=== PATIENT | female | born 1965 | race Caucasian/White ===

== ENCOUNTER 2019-03-08 09:54 | Emergency (ER) | payer SELFPAY ==
[2019-03-08] MEDS ORDERED: dexAMETHasone 10 MG/ML VIAL ONE (11:11)
--- NOTE | 2019-03-08 11:29 | ER ---
Nurse's Notes [facility] Name: Candis Denise Age: 53 yrs Sex: Female : 1965 Arrival Date: 03/08/2019 Time: 09:58 Bed X-Ray Private MD: Diagnosis: Low back pain;Muscle spasm of back;Sciatica, right side;Urinary tract infection, site not specified Presentation: 03/08 10:02 Presenting complaint: Patient states: Back pain x 3 weeks. Denies injury. Transition of rb1 care: patient was not received from another setting of care. Onset of symptoms is unknown. Risk Assessment: Do you want to hurt yourself or someone else? Patient reports no desire to harm self or others. Initial Sepsis Screen: Does the patient meet any 2 criteria? No. Patient's initial sepsis screen is negative. Does the patient have a suspected source of infection? No. Patient's initial sepsis screen is negative. Care prior to arrival: None. 10:02 Method Of Arrival: Ambulatory rb1 10:02 Acuity: TERESSA 3 rb1 Triage Assessment: 10:02 General: Appears uncomfortable, Behavior is calm, cooperative. Pain: Complains of pain rb1 in right low back Pain radiates to right leg Pain currently is 10 out of 10 on a pain scale. Pain began x 3 weeks. Neuro: Level of Consciousness is awake, alert, obeys commands, Oriented to person, place, time, situation. Cardiovascular: Capillary refill < 3 seconds is brisk in bilateral fingers. Respiratory: Airway is patent Respiratory effort is even, unlabored, Respiratory pattern is regular, symmetrical. GI: Reports nausea. : No signs and/or symptoms were reported regarding the genitourinary system. Derm: Skin is pink, warm \T\ dry. Musculoskeletal: Range of motion: intact in all extremities. MEETING COORDINATOR: 10:02 LMP N/A - Post-menopause rb1 Historical: - Allergies: 10:02 PENICILLINS; rb1 - Home Meds: 10:02 None [Active]; rb1 - PMHx: 10:02 None; rb1 - PSHx: 10:02 ; hand; rb1 - Immunization history:: Adult Immunizations up to date. - Social history:: Smoking status: . - Ebola Screening: : Patient negative for fever greater than or equal to 101.5 degrees Fahrenheit, and additional compatible Ebola Virus Disease symptoms. - Family history:: not pertinent. Screenin:02 Abuse screen: Denies threats or abuse. Nutritional screening: No deficits noted. rb1 Tuberculosis screening: No symptoms or risk factors identified. Fall Risk None identified. Assessment: 10:02 General: See triage assessment. rb1 10:55 Reassessment: Spoke to Logan in pharmacy, they will bring Toradol to the floor. Both rb1 Pysix is empty. 11:00 Reassessment: Patient appears in no apparent distress at this time. No changes from rb1 previously documented assessment. 11:45 Reassessment: Patient appears in no apparent distress at this time. Patient and/or rb1 family updated on plan of care and expected duration. Pain level reassessed. Patient is alert, oriented x 3, equal unlabored respirations, skin warm/dry/pink. Patient states feeling better. Vital Signs: 10:02 BP 154 / 74; Pulse 71; Resp 17; Temp 98.5(O); Pulse Ox 100% on R/A; Weight 74.84 kg rb1 (R); Height 5 ft. 8 in. (172.72 cm) (R); Pain 10/10; 11:00 BP 123 / 72; Pulse 73; Resp 16; Temp 98.3(O); Pulse Ox 100% on R/A; Pain 8/10; rb1 10:02 Body Mass Index 25.09 (74.84 kg, 172.72 cm) [facility] ED Course: 09:58 Patient arrived in ED. as 10:02 Drea iVnson, RN is Primary Nurse. rb1 10:02 Peterson High MD is Attending Physician. wyatt 10:02 Arm band placed on right wrist. rb1 10:02 Patient has correct armband on for positive identification. Bed in low position. Call rb1 light in reach. Side rails up X 1. Pulse ox on. NIBP on. 10:14 Triage completed. rb1 11:05 Patient moved to radiology via wheelchair. jb2 11:12 X-ray completed. Patient tolerated procedure well. Patient moved back from radiology. jb2 11:32 Lumbar Spine 3 Views In Process Unspecified. EDMS 11:40 Urine collected: clean catch specimen, cloudy. dh3 11:50 No provider procedures requiring assistance completed. Patient did not have IV access rb1 during this emergency room visit. Administered Medications: 11:00 Drug: Decadron 10 mg Route: IM; Site: right gluteus; rb1 11:15 Follow up: Response: No adverse reaction rb1 11:26 Drug: TORadol 60 mg Route: IM; Site: left gluteus; rb1 11:45 Follow up: Response: No adverse reaction; Pain is decreased rb1 11:45 Drug: Bactrim (160 mg-800 mg (DS) 1 tablet Route: PO; rb1 11:50 Follow up: Response: Medication administered at discharge. rb1 Outcome: 11:28 Discharge ordered by MD. schneider 11:50 Patient left the ED. rb1 11:50 Discharged to home ambulatory. rb1 11:50 Condition: stable 11:50 Discharge instructions given to patient, Instructed on discharge instructions, follow up and referral plans. medication usage, Demonstrated understanding of instructions, follow-up care, medications, Prescriptions given X x 5 Signatures: Dispatcher [employer] EDMS Peterson High MD MD cha Buechter, Jesse jb2 Martinez, Amelia as Barber, Rebecca, RN RN rb1 Vianney Cartagena 3 Corrections: (The following items were deleted from the chart) 11:40 11:40 Urine collected: clean catch specimen, clear, dh3 dh3
--- NOTE | 2019-03-08 11:30 | EDPHYS ---
Physician Documentation [facility] Name: Candis Denise Age: 53 yrs Sex: Female : 1965 Arrival Date: 03/08/2019 Time: 09:58 Bed X-Ray Private MD: ED Physician Peterson High HPI: 03/08 10:40 This 53 yrs old Female presents to ER via Ambulatory with complaints of Back wyatt Pain, Thigh Pain. 10:40 The patient presents with pain that is acute, and decreased range of motion. The wyatt symptoms are located in the low back. Onset: The symptoms/episode began/occurred 14 day(s) ago. The pain does not radiate. Associated signs and symptoms: The patient has no apparent associated signs or symptoms. Modifying factors: The patient symptoms are alleviated by remaining still, rest. Severity of symptoms: At their worst the symptoms were moderate, in the emergency department the symptoms are unchanged. The patient has not experienced similar symptoms in the past. [employer]IAL MEDIA MANAGER: 10:02 LMP N/A - Post-menopause rb1 Historical: - Allergies: 10:02 PENICILLINS; rb1 - Home Meds: 10:02 None [Active]; rb1 - PMHx: 10:02 None; rb1 - PSHx: 10:02 ; hand; rb1 - Immunization history:: Adult Immunizations up to date. - Social history:: Smoking status: . - Ebola Screening: : Patient negative for fever greater than or equal to 101.5 degrees Fahrenheit, and additional compatible Ebola Virus Disease symptoms. - Family history:: not pertinent. ROS: 10:40 Constitutional: Negative for fever, chills, and weight loss, Eyes: Negative for injury, wyatt pain, redness, and discharge, ENT: Negative for injury, pain, and discharge, Neck: Negative for injury, pain, and swelling, Cardiovascular: Negative for chest pain, palpitations, and edema, Respiratory: Negative for shortness of breath, cough, wheezing, and pleuritic chest pain, Abdomen/GI: Negative for abdominal pain, nausea, vomiting, diarrhea, and constipation, : Negative for injury, bleeding, discharge, and swelling, MS/Extremity: Negative for injury and deformity, Skin: Negative for injury, rash, and discoloration, Neuro: Negative for headache, weakness, numbness, tingling, and seizure, Psych: Negative for depression, anxiety, suicide ideation, homicidal ideation, and hallucinations, Allergy/Immunology: Negative for hives, rash, and allergies, Endocrine: Negative for neck swelling, polydipsia, polyuria, polyphagia, and marked weight changes, Hematologic/Lymphatic: Negative for swollen nodes, abnormal bleeding, and unusual bruising. 10:40 Back: Positive for decreased range of motion, pain with movement, of the lumbar area and right low back. Exam: 10:40 Constitutional: This is a well developed, well nourished patient who is awake, alert, wyatt and in no acute distress. Head/Face: Normocephalic, atraumatic. Eyes: Pupils equal round and reactive to light, extra-ocular motions intact. Lids and lashes normal. Conjunctiva and sclera are non-icteric and not injected. Cornea within normal limits. Periorbital areas with no swelling, redness, or edema. ENT: Nares patent. No nasal discharge, no septal abnormalities noted. Tympanic membranes are normal and external auditory canals are clear. Oropharynx with no redness, swelling, or masses, exudates, or evidence of obstruction, uvula midline. Mucous membranes moist. Neck: Trachea midline, no thyromegaly or masses palpated, and no cervical lymphadenopathy. Supple, full range of motion without nuchal rigidity, or vertebral point tenderness. No Meningismus. Chest/axilla: Normal chest wall appearance and motion. Nontender with no deformity. No lesions are appreciated. Cardiovascular: Regular rate and rhythm with a normal S1 and S2. No gallops, murmurs, or rubs. Normal PMI, no JVD. No pulse deficits. Respiratory: Lungs have equal breath sounds bilaterally, clear to auscultation and percussion. No rales, rhonchi or wheezes noted. No increased work of breathing, no retractions or nasal flaring. Abdomen/GI: Soft, non-tender, with normal bowel sounds. No distension or tympany. No guarding or rebound. No evidence of tenderness throughout. Female : Normal external genitalia. Skin: Warm, dry with normal turgor. Normal color with no rashes, no lesions, and no evidence of cellulitis. MS/ Extremity: Pulses equal, no cyanosis. Neurovascular intact. Full, normal range of motion. Neuro: Awake and alert, GCS 15, oriented to person, place, time, and situation. Cranial nerves II-XII grossly intact. Motor strength 5/5 in all extremities. Sensory grossly intact. Cerebellar exam normal. Normal gait. Psych: Awake, alert, with orientation to person, place and time. Behavior, mood, and affect are within normal limits. 10:40 Back: pain, that is mild, ROM is painful, normal spinal alignment noted, CVA tenderness, is absent, vertebral tenderness, is not appreciated. Vital Signs: 10:02 BP 154 / 74; Pulse 71; Resp 17; Temp 98.5(O); Pulse Ox 100% on R/A; Weight 74.84 kg rb1 (R); Height 5 ft. 8 in. (172.72 cm) (R); Pain 10; 11:00 BP 123 / 72; Pulse 73; Resp 16; Temp 98.3(O); Pulse Ox 100% on R/A; Pain 8; rb1 10:02 Body Mass Index 25.09 (74.84 kg, 172.72 cm) rb1 MDM: 10:02 Patient medically screened. [facility] 10:40 Data reviewed: vital signs, nurses notes, lab test result(s), radiologic studies, plain wyatt films. 03/08 11:40 Order name: Urine Culture ri 03/08 11:40 Order name: Urine Dipstick--Ancillary (enter results) ri 03/08 10:43 Order name: Lumbar Spine (3 Views) XRAY [facility] 03/08 11:32 Order name: Lumbar Spine 3 Views [facility] 03/08 10:43 Order name: Urine Dipstick-Ancillary (obtain specimen); Complete Time: 11:40 [facility] Administered Medications: 11:00 Drug: Decadron 10 mg Route: IM; Site: right gluteus; rb1 11:15 Follow up: Response: No adverse reaction rb1 11:26 Drug: TORadol 60 mg Route: IM; Site: left gluteus; rb1 11:45 Follow up: Response: No adverse reaction; Pain is decreased rb1 11:45 Drug: Bactrim (160 mg-800 mg (DS) 1 tablet Route: PO; rb1 11:50 Follow up: Response: Medication administered at discharge. rb1 Disposition: 03/08/19 11:28 Discharged to Home. Impression: Low back pain, Muscle spasm of back, Sciatica, right side, Urinary tract infection, site not specified. - Condition is Stable. - Discharge Instructions: Back Pain, Adult, Dysuria, Musculoskeletal Pain, Sciatica, Back Injury Prevention, [id number], Back Pain, Adult, [id number]. - Prescriptions for Tylenol- Codeine #3 300-30 mg Oral Tablet - take 2 tablet by ORAL route every 6 hours As needed; 30 tablet. Medrol (Kamari) 4 mg Oral Tablets, Dose Pack - take 1 tablet by ORAL route as directed - follow package instructions; 1 packet. Motrin IB 200 mg Oral Tablet - take 2 tablet by ORAL route every 6 hours As needed as needed with food; 30 tablet. Cyclobenzaprine 5 mg Oral Tablet - take 1 tablet by ORAL route 3 times per day As needed; 15 tablet. Bactrim DS 800- 160 mg Oral Tablet - take 1 tablet by ORAL route every 12 hours for 7 days; 14 tablet. - Medication Reconciliation Form, Thank You Letter, Antibiotic Education, Prescription Opioid Use form. - Follow up: Private Physician; When: 2 - 3 days; Reason: Recheck today's complaints, Continuance of care, Re-evaluation by your physician. - Problem is new. - Symptoms have improved. Signatures: Dispatcher [employer] EDPeterson Rodriguez MD MD cha Barber, Rebecca, RN RN rb1 Corrections: (The following items were deleted from the chart) 11:41 11:28 03/08/2019 11:28 Discharged to Home. Impression: Low back pain; Muscle spasm of wyatt back; Sciatica, right side. Condition is Stable. Discharge Instructions: Back Pain, Adult, Musculoskeletal Pain, Sciatica, Back Injury Prevention, [id number], Back Pain, Adult, [id number]. Prescriptions for Tylenol-Codeine #3 300-30 mg Oral Tablet - take 2 tablet by ORAL route every 6 hours As needed; 30 tablet, Medrol (Kamari) 4 mg Oral Tablets, Dose Pack - take 1 tablet by ORAL route as directed - follow package instructions; 1 packet, Motrin IB 200 mg Oral Tablet - take 2 tablet by ORAL route every 6 hours As needed as needed with food; 30 tablet, Cyclobenzaprine 5 mg Oral Tablet - take 1 tablet by ORAL route 3 times per day As needed; 15 tablet. and Forms are Medication Reconciliation Form, Thank You Letter, Antibiotic Education, Prescription Opioid Use. Follow up: Private Physician; When: 2 - 3 days; Reason: Recheck today's complaints, Continuance of care, Re-evaluation by your physician. Problem is new. Symptoms have improved. [facility] 11:50 11:41 03/08/2019 11:28 Discharged to Home. Impression: Low back pain; Muscle spasm of rb1 back; Sciatica, right side; Urinary tract infection, site not specified. Condition is Stable. Discharge Instructions: Back Pain, Adult, Musculoskeletal Pain, Sciatica, Back Injury Prevention, [id number], Back Pain, Adult, [id number]. Prescriptions for Tylenol-Codeine #3 300-30 mg Oral Tablet - take 2 tablet by ORAL route every 6 hours As needed; 30 tablet, Medrol (Kamari) 4 mg Oral Tablets, Dose Pack - take 1 tablet by ORAL route as directed - follow package instructions; 1 packet, Motrin IB 200 mg Oral Tablet - take 2 tablet by ORAL route every 6 hours As needed as needed with food; 30 tablet, Cyclobenzaprine 5 mg Oral Tablet - take 1 tablet by ORAL route 3 times per day As needed; 15 tablet. and Forms are Medication Reconciliation Form, Thank You Letter, Antibiotic Education, Prescription Opioid Use. Follow up: Private Physician; When: 2 - 3 days; Reason: Recheck today's complaints, Continuance of care, Re-evaluation by your physician. Problem is new. Symptoms have improved. [facility]
--- NOTE | 2019-03-08 11:34 | RAD REPORT ---
EXAM DESCRIPTION: RAD - Lumbar Spine 3 Views - 03/08/2019 11:17 am CLINICAL HISTORY: Back pain COMPARISON: None. FINDINGS: A three-view lumbar spine examination was performed. Lumbar bodies are normal in height an d alignment. No fracture or acute bony process seen. Slight narrowing of the L4-5 disc space. Minimal endplate spurring seen L3-L5. Lower lumbar facet joint degenerative changes are present but minimal. No pars defects identified. IMPRESSION: Mild lumbar spine degenerative change. No acute finding.
[2019-03-08] MEDS ORDERED: KETOROLAC 30 MG/ML INJ ONE (11:41)
[2019-03-08] MEDS ORDERED: SMZ./TMP. 800/160 MG TABLET ONE (11:59)
[2019-03-08 13:02] LABS: Urine Blood TRACE (NEG); Urine Glucose NEGATIVE (NEG); Urine Protein NEGATIVE (NEG)
== END 2019-03-08 11:50 | disposition home or self-care (01) ==
LOC: ER 09:54
DX: M62.830 Muscle spasm of back (principal); M54.31 Sciatica, right side; N39.0 Urinary tract infection, site not specified; Z88.0 Allergy status to penicillin
CPT/HCPCS: 72100; 81003; 87077; 87086; 87088; 87186; 96372; 99284; J1100